=== PATIENT | male | born 1945 | race Caucasian/White ===

== ENCOUNTER 2017-09-16 18:48 | Emergency (ER) | payer OTHER, SELFPAY ==
[2017-09-16 19:04] VITALS: BP 158/98; PULSE 76; RESP 16; TEMP 36.8; O2SAT 98; BMI 27.2
--- NOTE | 2017-09-16 19:16 | DI.RAD.S_ITS ---
PROCEDURE: XR FINGER LT MIN 2V INDICATIONS: crushed finger TECHNIQUE: AP hand, 2 views of the third finger(s) acquired. COMPARISON: None. FINDINGS: Bones: Possible nondisplaced fracture in the tip of the third distal phalanx. No suspicious bony lesions. Soft tissues: No suspicious soft tissue calcifications. No tissue laceration and contusion. Tiny superficial soft tissue foreign bodies noted in the distal third finger. IMPRESSION: 1. Possible nondisplaced fracture in the tip of the third distal phalanx. 2. Tiny superficial soft tissue foreign bodies in the distal third finger. Dictated by: Jerzy Frank M.D. on 09/16/2017 at 19:49 Approved by: Jerzy Frank M.D. on 09/16/2017 at 19:52
[2017-09-16] MEDS: TET,DIPH,PERTUSS(ACELL),VAC/PF 0.5 ML SYRINGE IM (19:34)
[2017-09-16] MEDS: CLINDAMYCIN 150 MG CAPSULE 300 MG PO (20:20)
[2017-09-16] MEDS: HYDROCODONE/ACET 5/325 PREPACK 1 BOTTLE MISC (20:28)
[2017-09-16 20:32] VITALS: BP 183/100; PULSE 67; O2SAT 99
--- NOTE | 2017-09-16 20:32 | PC.NURSE ---
Dr Casas aware of pts bp and ok with him to d/c to home
--- NOTE | 2017-09-17 03:39 | ED.WOUNDLAC ---
HPI - Wound/Laceration General Chief Complaint: Wound/Laceration Stated Complaint: LACERATION TO MIDDLE FINGER LEFT HAND Time Seen by Provider: 09/16/17 19:00 Source: patient Mode of arrival: ambulatory Limitations: no limitations History of Present Illness HPI narrative: 71-year-old male presents at the request of a clinic on [facility] for evaluation of crush injury to the tip of the left index finger. Patient was working with some heavy rocks [place] when 1 of the rocks Leg[place] and crushed the tip of his finger. He has full range of motion and denies numbness or tingling. He was 1st seen and evaluated at the clinic on or [facility] and a digital block was performed and attempts at irrigation. Patient was transported here by private auto for completion of evaluation and treatment Onset (ago): hour(s) Extremity Location: Left: hand Place: outdoors Patient tetanus UTD: No Context: accidental Associated symptoms: pain Related Data Home Medications Medication Instructions Recorded Confirmed HYDROCODONE/ACET 5/500 - 1 tab PO Q4HPRN #0 03/30/07 (Hydrocodon-Acetaminophen 5-500) Previous Rx's Medication Instructions Recorded clindamycin HCl 300 mg PO QID 7 Days #28 cap 09/16/17 hydrocodone-acetaminophen 1 tab PO Q4-6H PRN #14 tab 09/16/17 Allergies Allergy/AdvReac Type Severity Reaction Status Date / Time cephalexin [From Keflex] Allergy Verified 09/16/17 19:04 Review of Systems Review of Systems All systems reviewed & are unremarkable except as noted in HPI and below Constitutional Denies chills, Denies fever(s), Denies lethargy and Denies weakness Eyes Denies change in vision, Denies eye discharge, Denies irritation and Denies loss of vision ENT Ears, Nose, Mouth, and Throat: Denies change in voice, Denies neck pain and Denies sore throat Cardiovascular Denies chest pain, Denies irregular heart rhythm, Denies lightheadedness, Denies palpitations, Denies dyspnea, Denies dyspnea on exertion and Denies orthopnea Respiratory Denies cough, Denies dyspnea, Denies dyspnea on exertion and Denies wheezing Gastrointestinal Gastrointestinal: Denies abdominal pain, Denies change in bowel habits, Denies diarrhea, Denies nausea and Denies vomiting Genitourinary Denies hematuria, Denies flank pain, Denies urinary incontinence and Denies urinary urgency Musculoskeletal Reports joint swelling, Reports limited range of motion and Denies neck pain Integumentary/Breasts Denies pruritus, Denies erythema, Denies rash and Reports wounds Neurologic Denies confusion, Denies loss of vision and Denies weakness Psychiatric Denies anxiety, Denies confusion, Denies depression, Denies homicidal ideation and Denies suicidal ideation Endocrine Denies palpitations Hematologic/Lymphatic Denies easy bruising Allergic/Immunologic Denies wheezing [facility] Social History Smoking Status: Never smoker Exam Initial Vital Signs Initial Vital Signs: Vital Signs Temperature 98.3 F 09/16/17 19:04 Pulse Rate 76 09/16/17 19:04 Respiratory Rate 16 09/16/17 19:04 Blood Pressure 158/98 H 09/16/17 19:04 Pulse Oximetry 98 09/16/17 19:04 Const General: cooperative and well developed Nutritional Appearance: well nourished Orientation: alert, awake, oriented x3 and not confused HENMT Head: normocephalic and atraumatic Ears: external ears normal and TM's normal bilaterally Nose: external nose normal and No nasal discharge Face and sinus: sinuses nontender, face symmetric, no sinus tenderness and No dry mucous membranes Mouth: oral mucosae normal and moist mucous membranes Teeth and gingiva: dentition normal Throat: tonsils normal and uvula midline Resp Effort & Inspection: normal respiratory effort, able to speak in complete sentences, no respiratory distress and no use of accessory muscles Auscultation: clear to auscultation bilaterally, no rales, no rhonchi and no wheezes GI Inspection: non-distended Palpation: soft, no hepatosplenomegaly, No guarding, No pulsatile mass and No tender Auscultation: normal bowel sounds Back/Spine/Pelvis Back: No CVA tenderness Cervical Spine: cervical ROM normal and No pain with cervical ROM Thoracic/Lumbar Spine: thoracic and lumbar spine normal to inspection Skin Trauma: laceration (Tip of left middle finger) Neuro General: alert, oriented x3, gait normal and no focal motor deficits Speech: speech normal Extrem Left upper extremity: hand (Significant damage to distal tip of left middle finger. Nail is intact but has been torn from nail fold. There is no active bleeding and no obvious blood from nail bed. There is no exposed bone. Laceration extends across entire tip of finger. There is no obvious tissue loss. No numbness or tin) Procedures Laceration Repair Laceration 1: Site: hand Side (If applicable): left Size (cm): 3 Description: irregular and contaminated Local Anesthetic: lidocaine 1%, bupivacaine 0.25% and other anesthetic (Digital block) Amount of anesthesia used (mL): 6 Pre-repair: wound explored, irrigated extensively, deep structures intact and extensive debridement Skin layer closed with: nylon Size (cm): 4-0 Number of sutures: 4 Technique: simple, interrupted Course Orders Ordered: ED Orders 09/16/17 19:16 XR finger LT min 2V Stat Discontinued Medications Hydrocodone Bitart/Acetaminophen (Vicodin Prepack) 1 bottle MISC SEEINSTR ONE Stop: 09/16/17 20:24 Last Admin: 09/16/17 20:28 Dose: 1 bottle Clindamycin HCl (Cleocin) 300 mg PO NOW ONE Stop: 09/16/17 20:09 Last Admin: 09/16/17 20:20 Dose: 300 mg Diphtheria/Tetanus/Acell Pertussis (Adacel) 0.5 ml IM .ONCE ONE Stop: 09/16/17 19:31 Last Admin: 09/16/17 19:34 Dose: 0.5 ml Consultations Consultation #1: Called to on-call orthopedics to discuss options for follow-up. In the end there happy with extensive cleaning, tetanus, antibiotics, splinting and close follow-up in the office early next week. Dr. Stringer as that the patient either show up 1st thing on Tuesday or call for an appointment afternoon Vital Signs - 8 hr 09/16/17 20:32 Pulse Rate 67 Blood Pressure [Left Arm] 183/100 H Pulse Oximetry 99 Discharge Plan Departure Patient Disposition: Home, Self-Care Clinical Impression: Open fracture of finger of left hand Discharge Date/Time: 09/16/17 20:46 Interventions: ED Discharge Assessment Last Done: 09/16/17 20:45 Instructions: DI for Laceration Repair, DI for Open Fracture Activity Restrictions/Additional Instructions: *You have been diagnosed with [ open tuft fracture of left middle finger ] *What to do: *Take medications as directed *Follow up with Dr. Lynn at [facility]. I (Dr. Casas) spoke with him while you were in the emergency department and he states he is in clinic on Tuesday and that you can just show up if it is early in the morning or call head if after lunch. *Return to ER if you should have any new, worsening or concerning symptoms, such as [increasing pain, drainage, fever over 101 F or other concerning symptoms ] Prescriptions: New clindamycin HCl 300 mg capsule 300 mg PO QID 7 Days Qty: 28 RF: 0 hydrocodone-acetaminophen 5-325 mg tablet 1 tab PO Q4-6H PRN (Reason: pain) Qty: 14 RF: 0 No Action HYDROCODONE/ACET 5/500 - (Hydrocodon-Acetaminophen 5-500) 1 tab PO Q4HPRN Qty: 0 RF: 0 Referrals: Enedina Lynn MD [Physician] - (I spoke with Dr. Lynn on Tuesday evening and he stated patient could just show up on Tuesday morning if early, or he could call ahead after his Stress test later in the day) Demario Renteria MD [Primary Care Provider] -
--- NOTE | 2017-09-17 03:44 | ED_ITS ---
HPI - Wound/Laceration General Chief Complaint: Wound/Laceration Stated Complaint: LACERATION TO MIDDLE FINGER LEFT HAND Time Seen by Provider: 09/16/17 19:00 Source: patient Mode of arrival: ambulatory Limitations: no limitations History of Present Illness HPI narrative: 71-year-old male presents at the request of a clinic on [facility] for evaluation of crush injury to the tip of the left index finger. Patient was working with some heavy rocks [place] when 1 of the rocks [place] and crushed the tip of his finger. He has full range of motion and denies numbness or tingling. He was 1st seen and evaluated at the clinic on or [facility] and a digital block was performed and attempts at irrigation. Patient was transported here by private auto for completion of evaluation and treatment Onset (ago): hour(s) Extremity Location: Left: hand Place: outdoors Patient tetanus UTD: No Context: accidental Associated symptoms: pain Related Data Home Medications Medication Instructions Recorded Confirmed HYDROCODONE/ACET 5/500 - 1 tab PO Q4HPRN #0 03/30/07 (Hydrocodon-Acetaminophen 5-500) Previous Rx's Medication Instructions Recorded clindamycin HCl 300 mg PO QID 7 Days #28 cap 09/16/17 hydrocodone-acetaminophen 1 tab PO Q4-6H PRN #14 tab 09/16/17 Allergies Allergy/AdvReac Type Severity Reaction Status Date / Time cephalexin [From Keflex] Allergy Verified 09/16/17 19:04 Review of Systems Review of Systems All systems reviewed & are unremarkable except as noted in HPI and below Constitutional Denies chills, Denies fever(s), Denies lethargy and Denies weakness Eyes Denies change in vision, Denies eye discharge, Denies irritation and Denies loss of vision ENT Ears, Nose, Mouth, and Throat: Denies change in voice, Denies neck pain and Denies sore throat Cardiovascular Denies chest pain, Denies irregular heart rhythm, Denies lightheadedness, Denies palpitations, Denies dyspnea, Denies dyspnea on exertion and Denies orthopnea Respiratory Denies cough, Denies dyspnea, Denies dyspnea on exertion and Denies wheezing Gastrointestinal Gastrointestinal: Denies abdominal pain, Denies change in bowel habits, Denies diarrhea, Denies nausea and Denies vomiting Genitourinary Denies hematuria, Denies flank pain, Denies urinary incontinence and Denies urinary urgency Musculoskeletal Reports joint swelling, Reports limited range of motion and Denies neck pain Integumentary/Breasts Denies pruritus, Denies erythema, Denies rash and Reports wounds Neurologic Denies confusion, Denies loss of vision and Denies weakness Psychiatric Denies anxiety, Denies confusion, Denies depression, Denies homicidal ideation and Denies suicidal ideation Endocrine Denies palpitations Hematologic/Lymphatic Denies easy bruising Allergic/Immunologic Denies wheezing [facility] Social History Smoking Status: Never smoker Exam Initial Vital Signs Initial Vital Signs: Vital Signs Temperature 98.3 F 09/16/17 19:04 Pulse Rate 76 09/16/17 19:04 Respiratory Rate 16 09/16/17 19:04 Blood Pressure 158/98 H 09/16/17 19:04 Pulse Oximetry 98 09/16/17 19:04 Const General: cooperative and well developed Nutritional Appearance: well nourished Orientation: alert, awake, oriented x3 and not confused HENMT Head: normocephalic and atraumatic Ears: external ears normal and TM's normal bilaterally Nose: external nose normal and No nasal discharge Face and sinus: sinuses nontender, face symmetric, no sinus tenderness and No dry mucous membranes Mouth: oral mucosae normal and moist mucous membranes Teeth and gingiva: dentition normal Throat: tonsils normal and uvula midline Resp Effort & Inspection: normal respiratory effort, able to speak in complete sentences, no respiratory distress and no use of accessory muscles Auscultation: clear to auscultation bilaterally, no rales, no rhonchi and no wheezes GI Inspection: non-distended Palpation: soft, no hepatosplenomegaly, No guarding, No pulsatile mass and No tender Auscultation: normal bowel sounds Back/Spine/Pelvis Back: No CVA tenderness Cervical Spine: cervical ROM normal and No pain with cervical ROM Thoracic/Lumbar Spine: thoracic and lumbar spine normal to inspection Skin Trauma: laceration (Tip of left middle finger) Neuro General: alert, oriented x3, gait normal and no focal motor deficits Speech: speech normal Extrem Left upper extremity: hand (Significant damage to distal tip of left middle finger. Nail is intact but has been torn from nail fold. There is no active bleeding and no obvious blood from nail bed. There is no exposed bone. Laceration extends across entire tip of finger. There is no obvious tissue loss. No numbness or tin) Procedures Laceration Repair Laceration 1: Site: hand Side (If applicable): left Size (cm): 3 Description: irregular and contaminated Local Anesthetic: lidocaine 1%, bupivacaine 0.25% and other anesthetic ( Digital block) Amount of anesthesia used (mL): 6 Pre-repair: wound explored, irrigated extensively, deep structures intact and extensive debridement Skin layer closed with: nylon Size (cm): 4-0 Number of sutures: 4 Technique: simple, interrupted Course Orders Ordered: ED Orders 09/16/17 19:16 XR finger LT min 2V Stat Discontinued Medications Hydrocodone Bitart/Acetaminophen (Vicodin Prepack) 1 bottle MISC SEEINSTR ONE Stop: 09/16/17 20:24 Last Admin: 09/16/17 20:28 Dose: 1 bottle Clindamycin HCl (Cleocin) 300 mg PO NOW ONE Stop: 09/16/17 20:09 Last Admin: 09/16/17 20:20 Dose: 300 mg Diphtheria/Tetanus/Acell Pertussis (Adacel) 0.5 ml IM .ONCE ONE Stop: 09/16/17 19:31 Last Admin: 09/16/17 19:34 Dose: 0.5 ml Consultations Consultation #1: Called to on-call orthopedics to discuss options for follow- up. In the end there happy with extensive cleaning, tetanus, antibiotics, splinting and close follow-up in the office early next week. Dr. Stringer as that the patient either show up 1st thing on Tuesday or call for an appointment afternoon Vital Signs - 8 hr 09/16/17 20:32 Pulse Rate 67 Blood Pressure [Left Arm] 183/100 H Pulse Oximetry 99 Discharge Plan Departure Patient Disposition: Home, Self-Care Clinical Impression: Open fracture of finger of left hand Discharge Date/Time: 09/16/17 20:46 Interventions: ED Discharge Assessment Last Done: 09/16/17 20:45 Instructions: DI for Laceration Repair, DI for Open Fracture Activity Restrictions/Additional Instructions: *You have been diagnosed with [ open tuft fracture of left middle finger ] *What to do: *Take medications as directed *Follow up with Dr. Lynn at [facility]. I (Dr. Casas) spoke with him while you were in the emergency department and he states he is in clinic on Tuesday and that you can just show up if it is early in the morning or call head if after lunch. *Return to ER if you should have any new, worsening or concerning symptoms , such as [increasing pain, drainage, fever over 101 F or other concerning symptoms ] Prescriptions: New clindamycin HCl 300 mg capsule 300 mg PO QID 7 Days Qty: 28 RF: 0 hydrocodone-acetaminophen 5-325 mg tablet 1 tab PO Q4-6H PRN (Reason: pain) Qty: 14 RF: 0 No Action HYDROCODONE/ACET 5/500 - (Hydrocodon-Acetaminophen 5-500) 1 tab PO Q4HPRN Qty: 0 RF: 0 Referrals: Enedina Lynn MD [Physician] - (I spoke with Dr. Lynn on Tuesday evening and he stated patient could just show up on Tuesday morning if early, or he could call ahead after his Stress test later in the day) Demario Renteria MD [Primary Care Provider] -
== END 2017-09-16 20:46 | disposition home or self-care (01) ==
PROVIDERS: Emergency Provider Emergency Medicine; Family Provider Family Medicine; PCP Family Medicine
DX: S62.609B Fracture of unspecified phalanx of unspecified finger, initial encounter for open fracture (principal); W23.0XXA Caught, crushed, jammed, or pinched between moving objects, initial encounter
CPT/HCPCS: 12031; 73140; 99283; 90715

== ENCOUNTER → 2017-12-07 14:16 | Outpatient (CLI) | payer OTHER, SELFPAY ==
--- NOTE | 2017-12-07 | DI.MRI.S_ITS ---
PROCEDURE: MR ANKLE LT WO CON INDICATIONS: PAIN OF LEFT HEEL TECHNIQUE: Noncontrast sagittal T1 spin echo and T2 fast spin echo with fat saturation, axial proton density fast spin echo and T2 fast spin echo with fat saturation, coronal T1 spin echo and T2 fast spin echo with fat saturation through the ankle/hindfoot. COMPARISON: [facility], CR, XR ANKLE 3 VIEWS WEIGHT BEARING LEFT, 11/23/2017, 14:00. FINDINGS: Image quality: Diagnostic. Bones and joints: There is no acute fracture, dislocation, suspicious osseous lesion, or evidence of avascular necrosis. Ankle mortise is well-maintained. There are no osteochondral defects identified involving the tibial plafond toward the talar dome. There is a small Achilles spur involving the calcaneus. There mild to moderate degenerative changes identified involving the midfoot joint, best appreciated involving the 2nd tarsometatarsal joint. No significant joint effusions are identified. Medial structures: The deltoid ligament and spring ligament appear to be intact. Increased signal involving the superomedial band of the spring ligament is present. The tibialis posterior, flexor digitorum longus, and flexor hallucis longus tendons are intact and otherwise unremarkable. Mild edema is noted within the distal flexor hallucis longus muscle near the myotendinous junction. The posterior tibial nerve through the region of the tarsal tunnel appears to be normal in size and signal that extrinsic mass effect appreciated. Lateral structures: The anterior and posterior distal tibiofibular ligaments are intact. Thickening of the anterior talofibular ligament is identified without a complete tear evident. The posterior talofibular ligament is intact. The calcaneofibular ligament also is intact. There is increased signal identified involving the peroneus brevis and peroneus longus tendons along the posterior margin of the lateral malleolus. There may be atrophy involving the corresponding muscles. No full-thickness tears are appreciated. Anterior structures: The tibialis anterior, extensor hallucis longus, and extensor digitorum longus tendons appear intact. The dorsal talonavicular ligament appears intact. Posterior and plantar structures: There is prominent thickening and mild increased signal identified involving the Achilles tendon with areas of low-grade partial-thickness tearing. No complete tear is identified. The medial and lateral bands of the plantar fascia are intact. IMPRESSION: 1. Low-grade partial-thickness tearing of moderate tendinopathy of the Achilles tendon. 2. Edema of the distal flexor hallucis longus muscle may be related to a muscle strain. Neurogenic process is difficult to exclude. 3. Low-grade sprain of the spring ligament. 4. Mild tendinopathy involving the peroneus brevis and peroneus longus tendons with thinning of these tendons this raises suspicion prever chronic partial thickness injury or atrophy involving the corresponding muscles. However, the muscles are not completely included on this exam. 5. Mild lateral ankle ligament scarring. 6. Moderate degenerative changes of the midfoot joints are most pronounced involving the 2nd tarsometatarsal joint. Dictated by: Desmond Dhillon M.D. on 12/07/2017 at 16:26 Approved by: Desmond Dhillon M.D. on 12/07/2017 at 16:32
== END ==
PROVIDERS: PCP Family Medicine; Visit Provider Orthopaedic Surgery Foot and Ankle Surgery
DX: M25.572 Pain in left ankle and joints of left foot (principal); S86.012A Strain of left Achilles tendon, initial encounter; S93.492A Sprain of other ligament of left ankle, initial encounter; M19.072 Primary osteoarthritis, left ankle and foot
CPT/HCPCS: 73721

== ENCOUNTER → 2019-01-17 13:15 | Outpatient (CLI) | payer OTHER, SELFPAY | PROVIDERS: PCP Family Medicine; Visit Provider Family Medicine | DX: S81.802A Unspecified open wound, left lower leg, initial encounter (principal); L03.116 Cellulitis of left lower limb | CPT/HCPCS: 11042; 87070; 87075; 87205; 99203 ==

== ENCOUNTER → 2019-01-24 09:34 | Outpatient (CLI) | payer OTHER, SELFPAY | PROVIDERS: PCP Family Medicine; Visit Provider Family Medicine | DX: S81.802A Unspecified open wound, left lower leg, initial encounter (principal); L03.116 Cellulitis of left lower limb | CPT/HCPCS: 11042 ==

== ENCOUNTER → 2019-02-06 10:35 | Outpatient (CLI) | payer OTHER, SELFPAY | PROVIDERS: PCP Family Medicine; Visit Provider Family Medicine | DX: S81.802A Unspecified open wound, left lower leg, initial encounter (principal) | CPT/HCPCS: 11042 ==

== ENCOUNTER → 2019-02-13 10:40 | Outpatient (CLI) | payer OTHER, SELFPAY | PROVIDERS: PCP Family Medicine; Visit Provider Family Medicine | DX: S81.802A Unspecified open wound, left lower leg, initial encounter (principal) | CPT/HCPCS: 11042 ==

== ENCOUNTER → 2019-03-02 10:38 | Outpatient (CLI) | payer OTHER, SELFPAY | PROVIDERS: PCP Family Medicine; Visit Provider Family Medicine | DX: S81.802A Unspecified open wound, left lower leg, initial encounter (principal); R60.0 Localized edema | CPT/HCPCS: 99213 ==

== ENCOUNTER → 2019-03-12 13:30 | Outpatient (CLI) | payer MEDICARE, OTHER, SELFPAY | PROVIDERS: PCP Family Medicine; Visit Provider Family Medicine | DX: S81.802D Unspecified open wound, left lower leg, subsequent encounter (principal); R60.0 Localized edema | CPT/HCPCS: 99212; 99213 ==

== ENCOUNTER → 2020-07-10 08:31 | Outpatient (CLI) | payer MEDICARE, OTHER, SELFPAY ==
[2020-07-10 18:56] LABS: Add Manual Diff / Slide Review NO; Basophils Absolute Auto 0 /uL (0-100); Basophils Percent Auto 0.9 % (0-2); Eosinophils Absolute Auto 100 /uL (0-450); Eosinophils Percent Auto 2.6 % (2-4); Hematocrit 43.1 % (41-53); Hemoglobin 14.6 g/dL (13.5-17.5); Lymphocytes Absolute Auto 1600 /uL (1100-4500); Lymphocytes Percent Auto 30.4 % (25-40); Mean Corpuscular HGB Conc 33.7 % (30-36); Mean Corpuscular Hemoglobin 33.3 PG (26-34); Mean Corpuscular Volume 98.5 fL (80-100); Monocytes Absolute Auto 500 /uL (0-900); Monocytes Percent Auto 8.9 % (3-14); Neutrophils Absolute Auto 2900 /uL (1500-7000); Neutrophils Percent Auto 57.2 % (50-75); Platelet Count 179 X10^3/uL (150-400); Red Blood Cell Count 4.38 X10^6/uL (4.5-5.9); Red Cell Distribution Width 13.9 % (11.6-14.8); White Blood Cell Count 5.1 X10^3/uL (4.5-11.0)
[2020-07-10 19:02] LABS: Alanine Aminotransferase 55 IU/L (<50); Albumin 4.2 g/dL (3.5-5.0); Albumin Globulin Ratio 1.5 (1.0-2.8); Alkaline Phosphatase 69 U/L (38-126); Aspartate Aminotransferase 49 IU/L (17-59); BUN Creatinine Ratio 22.1 (6-22); Bilirubin Total 0.7 mg/dL (0.2-1.3); Blood Urea Nitrogen 21 mg/dL (9-20); Calcium 9.6 mg/dL (8.4-10.2); Carbon Dioxide 27 mmol/L (22-32); Chloride 105 mmol/L (98-107); Cholesterol 243 mg/dL (140-199); Estimated Glomerular Filt Rate > 60.0 mL/min (>60); Globulin 2.8 g/dL (1.7-4.1); Glucose 101 mg/dL (80-110); HDL Cholesterol 36 mg/dL (40-60); HEMOLYSIS < 15 (0-50); LDL Cholesterol Calculated 185 mg/dL (<100); Sodium 139 mmol/L (137-145); Triglycerides 108 mg/dL (35-150)
== END ==
PROVIDERS: PCP Family Medicine; Visit Provider Family Medicine
DX: I25.10 Atherosclerotic heart disease of native coronary artery without angina pectoris (principal); R53.83 Other fatigue; R03.0 Elevated blood-pressure reading, without diagnosis of hypertension; R06.00 Dyspnea, unspecified; Z86.79 Personal history of other diseases of the circulatory system; Z95.1 Presence of aortocoronary bypass graft
CPT/HCPCS: 80053; 80061; 85025

== ENCOUNTER → 2022-07-06 10:31 | Outpatient (CLI) | payer MEDICARE, OTHER, SELFPAY ==
[2022-07-06 19:21] LABS: Add Manual Diff / Slide Review NO; Basophils Absolute Auto 0 /uL (0-100); Basophils Percent Auto 0.2 % (0-2); Eosinophils Absolute Auto 100 /uL (0-450); Eosinophils Percent Auto 1.9 % (2-4); Hematocrit 41.9 % (41-53); Hemoglobin 14.4 g/dL (13.5-17.5); Lymphocytes Absolute Auto 1800 /uL (1100-4500); Lymphocytes Percent Auto 27.7 % (25-40); Mean Corpuscular HGB Conc 34.5 % (30-36); Mean Corpuscular Hemoglobin 33.2 PG (26-34); Mean Corpuscular Volume 96.3 fL (80-100); Monocytes Absolute Auto 600 /uL (0-900); Monocytes Percent Auto 9.1 % (3-14); Neutrophils Absolute Auto 4100 /uL (1500-7000); Neutrophils Percent Auto 61.1 % (50-75); Platelet Count 174 X10^3/uL (150-400); Red Blood Cell Count 4.35 X10^6/uL (4.5-5.9); Red Cell Distribution Width 13.6 % (11.6-14.8); White Blood Cell Count 6.7 X10^3/uL (4.5-11.0)
[2022-07-06 19:28] LABS: Alanine Aminotransferase 36 IU/L (<50); Albumin 4.5 g/dL (3.5-5.0); Albumin Globulin Ratio 1.6 (1.0-2.8); Alkaline Phosphatase 68 U/L (38-126); Aspartate Aminotransferase 37 IU/L (17-59); BUN Creatinine Ratio 22.1 (6-22); Bilirubin Total 0.9 mg/dL (0.2-1.3); Blood Urea Nitrogen 21 mg/dL (9-20); Calcium 9.1 mg/dL (8.4-10.2); Carbon Dioxide 27 mmol/L (22-32); Chloride 102 mmol/L (98-107); Cholesterol 166 mg/dL (140-199); Estimated Glomerular Filt Rate > 60 mL/min (>60); Globulin 2.9 g/dL (1.7-4.1); Glucose 98 mg/dL (80-110); HDL Cholesterol 40 mg/dL (40-60); HEMOLYSIS < 15 (0-50); LDL Cholesterol Calculated 105 mg/dL (<100); Potassium 4.5 mmol/L (3.4-5.1); Sodium 138 mmol/L (137-145); Total Protein 7.4 g/dL (6.3-8.2); Triglycerides 105 mg/dL (35-150)
== END ==
PROVIDERS: PCP Family Medicine; Visit Provider Family Medicine
DX: R74.01 Elevation of levels of liver transaminase levels (principal); I10 Essential (primary) hypertension; I25.10 Atherosclerotic heart disease of native coronary artery without angina pectoris
CPT/HCPCS: 80053; 80061; 85025

== ENCOUNTER → 2022-10-14 15:15 | Outpatient (CLI) | payer MEDICARE, OTHER, SELFPAY | PROVIDERS: PCP Family Medicine; Visit Provider Physician Assistant Medical | DX: M54.89 Other dorsalgia (principal) | CPT/HCPCS: 87086 ==

== ENCOUNTER → 2022-10-25 | Outpatient (CLI) | payer MEDICARE, OTHER, SELFPAY ==
--- NOTE | 2022-10-25 09:30 | DI.NM.S_ITS ---
PROCEDURE: NM DEJUAN PERF SPECT R&S PHARM Rest and pharmacological stress myocardial perfusion SPECT with gated imaging and ejection fraction RADIOPHARMACEUTICAL: 11.8 mCi Tc-99m tetrafosmin IV at rest and 25 mCi Tc-99m tetrafosmin IV at peak effect of pharmacological stress. [id number] was performed. INDICATIONS: dyspnea w exertion, history of bypass 2017, fatigue TECHNIQUE: Radiopharmaceutical was injected at peak stress test, and also at rest. SPECT images were obtained. SPECT myocardial perfusion images were displayed in short axis, horizontal long axis, and vertical long axis views. Gated images were reviewed using Digital Signal software. COMPARISON: None. CARDIAC STRESS: A pharmacologic stress test was performed under the supervision of an attending staff, using an infusion of lexiscan 0.4mg IV X1. Hemodynamic data: There is normal blood pressure and heart rate response to pharmacologic stress. Symptoms: The patient denied anginal chest pain. Aminophylline: none EKG: No diagnostic changes of ischemia; no ectopy. FINDINGS: Raw data: There is good myocardial uptake of radiotracer. No significant motion artifacts. [id number] ratio is 0.30 (normal is less than 0.38 for tetrafosmin tracer). Left ventricle function: Gated images demonstrate normal left ventricular wall thickening. No segmental wall motion abnormalities. No transient ischemic dilation; TID is 0.69 (normal less than 1.3). Left ventricle resting end diastolic volume is 85 mL. Left ventricle stress ejection fraction is 70%; normal range is above 45%. Myocardial perfusion: There is normal distribution of activity in the right and left ventricular myocardium. No fixed or reversible perfusion defects. IMPRESSION: Low risk, normal pharmaceutical nuclear stress test 1) No perfusion evidence of ischemia or infarction. 2) Normal left ventricular size, wall motion, and systolic function (EF post stress 70%). 3) No angina with lexiscan. 4) No ST changes with lexiscan. 5) No prior nuclear stress test available for comparison. Dictated by: Anabel Manning MD on 10/26/2022 at 16:56 Approved by: Anabel Manning MD on 10/26/2022 at 16:57
--- NOTE | 2022-10-25 11:05 | DI.MRI.S_ITS ---
PROCEDURE: MR BRAIN (IAC) WWO CON INDICATIONS: rapid hearing loss right, right acoustic neuroma since 1989 TECHNIQUE: Noncontrast sagittal T1 spin echo, axial FLAIR, axial gradient echo, axial diffusion and ADC through the brain. Axial thin-slice 3D CISS, coronal TruFISP, axial T1 spin echo with fat saturation through the internal auditory canals. After the administration of contrast, thin slice axial and coronal T1 spin echo with fat saturation through the internal auditory canals, and axial and coronal and sagittal T1 spin echo with fat saturation through the brain. COMPARISON: None. FINDINGS: Image quality: Excellent. Cerebellopontine angles: Enhancing mass within the apex of the right internal auditory canal measuring 4 x 7 x 4 mm (AP by TV by cc). Inner ear structures appear normally formed. Otherwise, no suspicious enhancement in the internal auditory canal or along the course of the 7th cranial nerve. CSF spaces: Ventricles are normal in size and shape. No extra-axial fluid collections. Basal cisterns are patent. Brain: No intracranial bleeds or mass effects. Horta-white matter interface is intact. No abnormal intracranial enhancement. There are T2/FLAIR hyperintensities within the deep and periventricular white matter, nonspecific and likely representing chronic microvascular ischemic change. Age-related global volume loss. Diffusion weighted images demonstrate no acute ischemic insults. Brainstem appears normal. Normal intravascular flow voids are present. Skull and face: Calvarial marrow signal is normal. 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 Orbits appear normal. Sinuses: Paranasal sinus mucosal thickening. The mastoid air cells are clear. IMPRESSION: 1. Mass within the apex of the right IAC measuring 4 x 7 x 4 mm, consistent with history of acoustic neuroma. 2. Age-related volume loss and chronic microvascular ischemic change. 3. Severe left TMJ osteoarthritic changes. 4. Paranasal sinus mucosal disease. Dictated by: Slade Nieves M.D. on 10/25/2022 at 12:59 Approved by: Slade Nieves M.D. on 10/25/2022 at 13:05
== END ==
PROVIDERS: PCP Family Medicine; Referring Provider Family Medicine; Visit Provider Family Medicine
DX: D33.3 Benign neoplasm of cranial nerves (principal); H91.93 Unspecified hearing loss, bilateral; I25.10 Atherosclerotic heart disease of native coronary artery without angina pectoris; R53.83 Other fatigue; J32.9 Chronic sinusitis, unspecified; Z95.1 Presence of aortocoronary bypass graft
CPT/HCPCS: 70553; 78452; 93017; A9502; J2785

== ENCOUNTER → 2022-11-15 09:49 | Outpatient (CLI) | payer MEDICARE, OTHER, SELFPAY ==
[2022-11-15 20:10] LABS: Add Manual Diff / Slide Review NO; Basophils Absolute Auto 0 /uL (0-100); Basophils Percent Auto 0.5 % (0-2); Eosinophils Absolute Auto 100 /uL (0-450); Eosinophils Percent Auto 1.9 % (2-4); Hematocrit 41.2 % (41-53); Hemoglobin 14.3 g/dL (13.5-17.5); Lymphocytes Absolute Auto 1900 /uL (1100-4500); Lymphocytes Percent Auto 27.4 % (25-40); Mean Corpuscular HGB Conc 34.7 % (30-36); Mean Corpuscular Hemoglobin 33.1 PG (26-34); Mean Corpuscular Volume 95.4 fL (80-100); Monocytes Absolute Auto 500 /uL (0-900); Monocytes Percent Auto 7.6 % (3-14); Neutrophils Absolute Auto 4400 /uL (1500-7000); Neutrophils Percent Auto 62.6 % (50-75); Platelet Count 182 X10^3/uL (150-400); Red Blood Cell Count 4.32 X10^6/uL (4.5-5.9); Red Cell Distribution Width 13.8 % (11.6-14.8)
[2022-11-15 20:40] LABS: Erythrocyte Sedimentation Rate 15 MM/HR (0-15)
[2022-11-16 03:20] LABS: BUN Creatinine Ratio 18.2 (6-22); Blood Urea Nitrogen 16 mg/dL (9-20); C-Reactive Protein Quant < 0.5 mg/dL (<1.0); Calcium 9.5 mg/dL (8.4-10.2); Carbon Dioxide 21 mmol/L (22-32); Chloride 104 mmol/L (98-107); Estimated Glomerular Filt Rate > 60 mL/min (>60); Glucose 95 mg/dL (80-110); HEMOLYSIS < 15 (0-50); Potassium 4.6 mmol/L (3.4-5.1); Sodium 137 mmol/L (137-145)
[2022-11-16 03:47] LABS: Prostate Specific Antigen 4.09 ng/mL (0.10-4.00)
[2022-11-17 19:56] LABS: Free Kappa Lt Chains, Serum 18.3 mg/L (3.3-19.4); Free Lambda Lt Chains,Serum 12.3 mg/L (5.7-26.3)
[2022-11-18 17:30] LABS: Albumin 3.8 g/dL (2.9-4.4); Alpha-1-Globulin 0.2 g/dL (0.0-0.4); Alpha-2-Globulin 0.8 g/dL (0.4-1.0); Gamma Globulin 1.1 g/dL (0.4-1.8); Globulin Total 3.1 g/dL (2.2-3.9); Protein, Total 6.9 g/dL (6.0-8.5)
== END ==
PROVIDERS: PCP Family Medicine; Visit Provider Family Medicine
DX: Z12.5 Encounter for screening for malignant neoplasm of prostate (principal); M54.16 Radiculopathy, lumbar region; G62.9 Polyneuropathy, unspecified; M54.30 Sciatica, unspecified side; Z01.812 Encounter for preprocedural laboratory examination
CPT/HCPCS: 80048; 83883; 84153; 84155; 84165; 85025; 85651; 86140; G0103

== ENCOUNTER → 2022-12-02 13:02 | Outpatient (CLI) | payer MEDICARE, OTHER, SELFPAY ==
--- NOTE | 2022-12-02 | DI.ECHO.S_ITS ---
[facility]---------+ [facility] +---------+ : : [address] : : : : [id number] : : : : Phone: [phone]+ Echocardiogram Report + + :Name: CHI NATHAN JR Study Date: 12/02/2022 Height: 70 in : :[facility] ReadingLocation: Weight: 188 lb : : Gender: Male BSA: 2.0 m2 : :: 1945 Age: 76 yrs BP: 139/77 mmHg: :Reason For Study: Coronary Artery Disease : :Ordering Physician: BRET, : :KATHERIN Performed By: Lyric Pate : :Referring: KATHERIN QUEEN : + + Interpretation Summary The left ventricle is normal in size. Left ventricular systolic function is normal. The ejection fraction is estimated to be 55-60%. Diastolic parameters suggest a relaxation abnormality of the left ventricle, consistent with probable normal filling pressures. The right ventricle is mild to moderately dilated. The right ventricular systolic function is normal. The left atrial size is normal. There is no significant valvular heart disease. The aortic root is normal size. Procedure: A two-dimensional transthoracic echocardiogram with color flow and Doppler was performed. The study quality was technically difficult. There is no prior echocardiogram noted for this patient. Left Ventricle: The left ventricle is normal in size. Left ventricular systolic function is normal. The ejection fraction is estimated to be 55-60%. There are no obvious focal wall motion abnormalities noted but poor endocardial definition reduces the sensitivity for the detection of such. Diastolic parameters suggest a relaxation abnormality of the left ventricle, consistent with probable normal filling pressures. Right Ventricle: The right ventricle is mild to moderately dilated. The right ventricular systolic function is normal. Atria: The left atrial size is normal. Right atrial size is normal. There is no Doppler evidence for an interatrial shunt. Mitral Valve: The mitral valve is normal. There is mild mitral annular calcification. There is no mitral valve stenosis. There is no mitral regurgitation noted. Aortic Valve: The aortic valve is trileaflet. The aortic valve is mildly calcified. There is no aortic valve stenosis. There is trace aortic regurgitation. Tricuspid Valve: The tricuspid valve is normal. There is no tricuspid stenosis. There is trace tricuspid regurgitation. The right ventricular systolic pressure is estimated to be at least 19 mmHg based on an estimated right atrial pressure of 3 mm Hg. Pulmonic Valve: The pulmonic valve is not well visualized. There is no pulmonic valvular stenosis. There is trace pulmonic regurgitation. There is no significant valvular heart disease. Great Vessels: The aortic root is normal size. The ascending aorta is normal in size. The pulmonary artery is normal size. The IVC is of normal diameter and collapses greater than 50% with a sniff. This suggests a low right atrial pressure of 3 mm Hg. Pericardium/ Pleura There is no pericardial effusion. There is no pleural effusion. MMode/2D Measurements & Calculations LVIDd: 4.2 cm LVOT diam: 1.9 cm LVIDs: 2.7 cm Ao root diam: 3.5 cm FS: 35.7 % asc Aorta Diam: 3.3 cm EPSS: 0.30 cm IVSd: 1.1 cm LVPWd: 0.90 cm LV betancourt. diameter/BSA (cm/m^2): 2.1 LV sys. diameter/BSA (cm/m^2): 1.3 LA A2 area: 19.9 cm2 RA long axis: 5.2 cm LA A4 area: 13.6 cm2 RA area: 14.3 cm2 LA length (vol): 6.0 cm RA vol: 33.6 ml LA vol: 38.4 ml RA : 16.5 ml/m2 LA vol index: 18.9 ml/m2 RVD1 (basal): 4.4 cm TAPSE_phl: 1.4 cm Doppler Measurements & Calculations Ao V2 max: 124.0 cm/sec LVOT Max Erwin: 101.0 cm/sec Ao V2 mean: 86.9 cm/sec LV V1 max P.1 mmHg Ao max P.0 mmHg LV V1 VTI: 17.2 cm Ao mean P.0 mmHg AMBER(I,D): 1.9 cm2 Ao V2 VTI: 25.7 cm AMBER(V,D): 2.3 cm2 sev ratio: 0.67 AMBER indexed to BSA (cm^2/m^2): 0.93 MV E max erwin: 49.7 cm/sec TR max erwin: 199.0 cm/sec MV A max erwin: 78.2 cm/sec TR max P.9 mmHg MV E/A: 0.64 PA V2 max: 116.0 cm/sec Med Peak E' Erwin: 8.3 cm/sec PA V2 mean: 74.8 cm/sec E/E' med: 6.0 PA mean P.0 mmHg Lat Peak E' Erwin: 10.7 cm/sec PA pr(Accel): 50.6 mmHg E/E' lat: 4.6 E/e' average: 5.3 MV dec time: 0.25 sec SV(LVOT): 48.8 ml AV VR_phl: 0.81 AMBER(VTI)/BSA_phl: 0.94 Reading Physician:03:57 PM
== END ==
PROVIDERS: PCP Family Medicine; Referring Provider Internal Medicine Cardiovascular Disease; Visit Provider Internal Medicine Cardiovascular Disease
DX: I25.10 Atherosclerotic heart disease of native coronary artery without angina pectoris (principal); I34.81 Nonrheumatic mitral (valve) annulus calcification
CPT/HCPCS: 93306

== ENCOUNTER → 2023-05-09 11:24 | Outpatient (CLI) | payer MEDICARE, OTHER, SELFPAY ==
[2023-05-09 20:16] LABS: Prostate Specific Antigen Scrn 3.33 ng/mL (0.1-4.0)
== END ==
PROVIDERS: PCP Family Medicine; Visit Provider Family Medicine
DX: Z12.5 Encounter for screening for malignant neoplasm of prostate (principal); I10 Essential (primary) hypertension
CPT/HCPCS: 84443; G0103

== ENCOUNTER → 2023-06-07 10:40 | Outpatient (CLI) | payer MEDICARE, OTHER, SELFPAY ==
--- NOTE | 2023-06-07 10:42 | DI.CT.S_ITS ---
PROCEDURE: CT SINUS SCREEN WO CON INDICATIONS: Chronic pansinusitis TECHNIQUE: Noncontrast 3.0 mm axial images acquired from the frontal sinuses to the mid-sella, with coronal and sagittal reformats. For radiation dose reduction, the following was used: automated exposure control, adjustment of mA and/or kV according to patient size. COMPARISON: None. FINDINGS: Image quality: Excellent. Maxillary Sinuses: No bony remodeling or destruction. Moderate mucosal thickening of the bilateral maxillary sinuses. Small air-fluid level within left maxillary sinus with frothy secretions.. Ethmoid Air Cells: No bony remodeling or destruction. Mild mucosal thickening. Sphenoid Sinuses: No bony remodeling or destruction. Mild mucosal thickening of the left sphenoid sinus with frothy secretions. The right sphenoid sinus is clear.. Frontal Sinuses: No bony remodeling or destruction. Mild right and minimal left mucosal thickening.. Ostiomeatal Complexes: Ostiomeatal complexes are patent but narrowed by bilateral Jarrett cells. Miscellaneous: Visualized intra-orbital contents are normal. Bilateral lens replacements. No maren bullosa or paradoxical turbinate curvature. No th significant nasal septal deviation. 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 IMPRESSION: 1. Diffuse paranasal sinus disease as described above with frothy secretions suggesting acute sinusitis. 2. 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 Dictated by: Slade Nieves M.D. on 06/07/2023 at 11:52 Approved by: Slade Nieves M.D. on 06/07/2023 at 12:28
== END ==
PROVIDERS: PCP Family Medicine; Referring Provider Otolaryngology; Visit Provider Otolaryngology
DX: J32.4 Chronic pansinusitis (principal)
CPT/HCPCS: 70486

== ENCOUNTER → 2023-12-12 13:06 | Outpatient (CLI) | payer MEDICARE, OTHER, SELFPAY ==
[2023-12-12 20:42] LABS: Alanine Aminotransferase 21 IU/L (<50); Albumin 4.4 g/dL (3.5-5.0); Albumin Globulin Ratio 1.7 (1.0-2.8); Alkaline Phosphatase 67 U/L (38-126); Aspartate Aminotransferase 32 IU/L (17-59); BUN Creatinine Ratio 23.4 (6-22); Bilirubin Total 0.7 mg/dL (0.2-1.3); Blood Urea Nitrogen 22 mg/dL (9-20); Calcium 9.4 mg/dL (8.4-10.2); Carbon Dioxide 22 mmol/L (22-32); Chloride 103 mmol/L (98-107); Estimated Glomerular Filt Rate > 60 mL/min (>60); Globulin 2.6 g/dL (1.7-4.1); Glucose 91 mg/dL (80-110); HEMOLYSIS < 15 (0-50); Potassium 4.1 mmol/L (3.4-5.1); Sodium 136 mmol/L (137-145)
[2023-12-12 21:48] LABS: Folate > 20.0 ng/mL (2.76-20.0); Vitamin B12 280 pg/mL (239-931)
[2023-12-17 16:10] LABS: Vitamin B1 156.2 nmol/L (66.5-200.0)
== END ==
PROVIDERS: PCP Family Medicine; Visit Provider Family Medicine
DX: R26.89 Other abnormalities of gait and mobility (principal); R29.818 Other symptoms and signs involving the nervous system; R29.898 Other symptoms and signs involving the musculoskeletal system; R29.90 Unspecified symptoms and signs involving the nervous system
CPT/HCPCS: 80053; 82607; 82746; 84425

== ENCOUNTER → 2023-12-14 10:48 | Outpatient (CLI) | payer MEDICARE, OTHER, SELFPAY | PROVIDERS: PCP Family Medicine; Referring Provider Family Medicine; Visit Provider Family Medicine | DX: R06.02 Shortness of breath (principal); R06.00 Dyspnea, unspecified; R94.2 Abnormal results of pulmonary function studies | CPT/HCPCS: 94060; 94726; 94729 ==

== ENCOUNTER → 2024-03-13 12:09 | Outpatient (CLI) | payer MEDICARE, OTHER, SELFPAY ==
--- NOTE | 2024-03-13 12:10 | DI.CT.S_ITS ---
PROCEDURE: CT CHEST HIGH RESOLUTION INDICATIONS: Dyspnea on exertion TECHNIQUE: Noncontrast 1.0 and 5.0 mm thick contiguous axial sections from the pulmonary apex to the posterior costophrenic angles, with 7 mm thick coronal and sagittal MIP reformats. 1 mm thick dynamic expiratory images acquired through the upper, mid, and lower lungs. 1.0 mm thick axial sections acquired from the bandar to the posterior costophrenic angles in the prone end-inspiration position. For radiation dose reduction, the following was used: automated exposure control, adjustment of mA and/or kV according to patient size. COMPARISON: None. FINDINGS: Image quality: Diagnostic. Lower Neck: No enlarged lymph nodes. Thyroid: Normal CT appearance. Axillae: No enlarged lymph nodes. Chest Wall: Median sternotomy changes. Bones: Mild degenerative thoracic spine changes. Lungs and Pleura: Central and peripheral airways are normal without bronchial wall thickening or bronchiectasis. No significant air trapping on dynamic images. Scattered bilateral subpleural calcifications. No suspicious soft tissue nodule or mass. Calcified micro nodules in the right posterior costophrenic sulcus. No significant reticulation, interstitial thickening, honeycombing, ground-glass opacity, or consolidation. No pleural effusion, pleural plaquing, or pleural calcification. Heart: Mild cardiomegaly. Post CABG changes. Heavy navajo coronary artery calcification versus stenting. Thoracic Vessels: Small ascending aortic aneurysm at 4.3 cm. Normal pulmonary artery caliber. Mediastinum and Carla: No enlarged lymph nodes. Esophagus: No wall thickening. No hiatal hernia. Upper Abdomen: Hepatic cysts. Visible portions of upper abdominal organs are otherwise normal. IMPRESSION: No significant interstitial abnormalities. Predominantly scattered and calcified micro nodules in the lungs is likely sequelae remote, healed granulomatous disease exposure. Known coronary artery disease. Small ascending aortic aneurysm. Dictated by: Deann Choudhury M.D. on 03/13/2024 at 20:38 Approved by: Deann Choudhury M.D. on 03/13/2024 at 20:45
== END ==
PROVIDERS: PCP Family Medicine; Referring Provider Internal Medicine; Visit Provider Internal Medicine
DX: I71.21 Aneurysm of the ascending aorta, without rupture (principal); R06.00 Dyspnea, unspecified; M47.814 Spondylosis without myelopathy or radiculopathy, thoracic region; I51.7 Cardiomegaly; I25.10 Atherosclerotic heart disease of native coronary artery without angina pectoris; K76.89 Other specified diseases of liver; R91.8 Other nonspecific abnormal finding of lung field
CPT/HCPCS: 71250

== ENCOUNTER → 2024-03-13 12:20 | Outpatient (CLI) | payer MEDICARE, OTHER, SELFPAY ==
--- NOTE | 2024-03-13 | DI.MRI.S_ITS ---
PROCEDURE: MR HEAD/BRAIN WO/W CON INDICATIONS: ataxia, lack of coordination TECHNIQUE: Noncontrast axial T1 spin echo, axial T2 fast spin echo, sagittal and axial FLAIR, coronal T2 fast spin echo, axial gradient echo, axial diffusion and ADC through the brain. After the administration of contrast, axial and coronal and sagittal T1 spin echo with fat saturation through the brain. COMPARISON: [facility], CT, CT SINUS SCREEN WO CON, 06/07/2023, 11:06. [facility], MR, MR IAC (BRAIN) WWO CON, 10/25/2022, 10:49. FINDINGS: Image quality: Excellent. CSF spaces: Basal cisterns are patent. No extra-axial fluid collections. Ventricles are normal in size and shape. Brain: No midline shift. No intracranial bleeds or masses. No abnormal intracranial enhancement. There is cerebral volume loss for age. There is periventricular white matter chronic small vessel ischemic change. The brainstem appears normal. Diffusion-weighted images demonstrate no acute infarct. No chronic ischemic insults. Normal intravascular flow voids are present. In this patient with this given history, scrutiny is given to cerebellopontine angle cisterns and to the internal auditory canals. There is enhancing lesion seen within the right internal auditory canal, measuring up to 6 mm, as seen on series 13, image 37 and on series 15, image 94. Skull and face: Calvarial marrow is normal in signal. Orbits appear normal. Note is made of bilateral lens replacements. Significant irregularity is again seen involving the left mandibular condyle and the temporomandibular joint. Sinuses: There is moderate to severe mucosal thickening seen within the maxillary sinuses. Milder mucosal thickening can be seen elsewhere within the paranasal sinuses. No abnormal fluid is seen within the mastoid air cells. IMPRESSION: There is an enhancing nodule within the right internal auditory canal, which was previously seen in 2022 and demonstrates no definite change (to the limits of this standard protocol study). 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 Significant left temporomandibular joint degenerative change seen, which is better demonstrated by CT. Additional findings: Significant maxillary sinus disease. Dictated by: Jose Elias Bronson M.D. on 03/13/2024 at 15:43 Approved by: Jose Elias Bronson M.D. on 03/13/2024 at 15:47
== END ==
LOC: MRI 12:22
PROVIDERS: PCP Family Medicine; Referring Provider Psychiatry & Neurology Neurology; Visit Provider Psychiatry & Neurology Neurology
DX: R27.8 Other lack of coordination (principal); R27.0 Ataxia, unspecified; D33.3 Benign neoplasm of cranial nerves; G25.2 Other specified forms of tremor; J32.0 Chronic maxillary sinusitis; I71.21 Aneurysm of the ascending aorta, without rupture; R91.8 Other nonspecific abnormal finding of lung field; R06.00 Dyspnea, unspecified; M47.814 Spondylosis without myelopathy or radiculopathy, thoracic region; I51.7 Cardiomegaly; I25.10 Atherosclerotic heart disease of native coronary artery without angina pectoris; K76.89 Other specified diseases of liver
CPT/HCPCS: 70553; 71250; A9579

== ENCOUNTER → 2024-04-17 11:15 | Outpatient (CLI) | payer MEDICARE, OTHER, SELFPAY ==
[2024-04-17 19:26] LABS: Alanine Aminotransferase 24 IU/L (<50); Albumin 4.6 g/dL (3.5-5.0); Albumin Globulin Ratio 1.7 (1.0-2.8); Alkaline Phosphatase 66 U/L (38-126); Aspartate Aminotransferase 37 IU/L (17-59); BUN Creatinine Ratio 21.7 (6-22); Bilirubin Total 0.8 mg/dL (0.2-1.3); Blood Urea Nitrogen 23 mg/dL (9-20); Calcium 9.3 mg/dL (8.4-10.2); Carbon Dioxide 23 mmol/L (22-32); Chloride 105 mmol/L (98-107); Estimated Glomerular Filt Rate > 60 mL/min (>60); Globulin 2.7 g/dL (1.7-4.1); Glucose 86 mg/dL (80-110); HEMOLYSIS < 15 (0-50); Potassium 4.3 mmol/L (3.4-5.1); Sodium 138 mmol/L (137-145); Total Protein 7.3 g/dL (6.3-8.2)
[2024-04-17 19:27] LABS: Add Manual Diff / Slide Review NO; Basophils Absolute Auto 0 /uL (0-100); Basophils Percent Auto 0.4 % (0-2); Eosinophils Absolute Auto 100 /uL (0-450); Eosinophils Percent Auto 0.9 % (2-4); Hematocrit 41.8 % (41-53); Hemoglobin 14.2 g/dL (13.5-17.5); Lymphocytes Absolute Auto 1800 /uL (1100-4500); Lymphocytes Percent Auto 30.4 % (25-40); Mean Corpuscular Hemoglobin 33.5 PG (26-34); Mean Corpuscular Volume 98.6 fL (80-100); Monocytes Absolute Auto 500 /uL (0-900); Monocytes Percent Auto 8.5 % (3-14); Neutrophils Absolute Auto 3600 /uL (1500-7000); Neutrophils Percent Auto 59.8 % (50-75); Platelet Count 199 X10^3/uL (150-400); Red Blood Cell Count 4.24 X10^6/uL (4.5-5.9); Red Cell Distribution Width 13.2 % (11.6-14.8); White Blood Cell Count 6.1 X10^3/uL (4.5-11.0)
[2024-04-17 19:33] LABS: INR 1.1 (0.9-1.3); Prothrombin Time 11.9 SECONDS (9.4-12.5)
[2024-04-17 19:36] LABS: PTT Partial Thromboplastin Tim 36 SECONDS (25.1-36.5)
== END ==
PROVIDERS: PCP Family Medicine; Visit Provider Family Medicine
DX: Z78.9 Other specified health status (principal); Z86.79 Personal history of other diseases of the circulatory system; I11.0 Hypertensive heart disease with heart failure; I50.9 Heart failure, unspecified; I25.10 Atherosclerotic heart disease of native coronary artery without angina pectoris; R74.01 Elevation of levels of liver transaminase levels; R06.00 Dyspnea, unspecified
CPT/HCPCS: 80053; 85025; 85610; 85730

== ENCOUNTER → 2024-07-12 08:59 | Outpatient (CLI) | payer MEDICARE, OTHER, SELFPAY ==
[2024-07-12 19:43] LABS: BUN Creatinine Ratio 20.6 (6-22); Blood Urea Nitrogen 20 mg/dL (9-20); Calcium 9.6 mg/dL (8.4-10.2); Carbon Dioxide 25 mmol/L (22-32); Chloride 102 mmol/L (98-107); Cholesterol 209 mg/dL (140-199); Estimated Glomerular Filt Rate > 60 mL/min (>60); Glucose 91 mg/dL (70-99); HDL Cholesterol 34 mg/dL (40-60); HEMOLYSIS < 15 (0-50); LDL Cholesterol Calculated 147 mg/dL (<100); Potassium 4.6 mmol/L (3.4-5.1); Sodium 136 mmol/L (137-145); Triglycerides 142 mg/dL (35-150)
[2024-07-12 20:15] LABS: Prostate Specific Antigen Scrn 3.73 ng/mL (0.1-4.0)
[2024-07-12 20:18] LABS: Ferritin 179 ng/mL (18-464)
[2024-07-12 20:35] LABS: Vitamin B12 866 pg/mL (239-931)
== END ==
PROVIDERS: PCP Family Medicine; Visit Provider Family Medicine
DX: Z12.5 Encounter for screening for malignant neoplasm of prostate (principal); I11.0 Hypertensive heart disease with heart failure; I50.9 Heart failure, unspecified; I25.10 Atherosclerotic heart disease of native coronary artery without angina pectoris; E53.8 Deficiency of other specified B group vitamins; E78.2 Mixed hyperlipidemia
CPT/HCPCS: 80048; 80061; 82607; 82728; G0103

== ENCOUNTER → 2025-01-24 11:21 | Outpatient (CLI) | payer MEDICARE, OTHER, SELFPAY ==
[2025-01-24 19:12] LABS: Hematocrit 41.0 % (41-53); Hemoglobin 14.2 g/dL (13.5-17.5); Mean Corpuscular HGB Conc 34.7 % (30-36); Mean Corpuscular Hemoglobin 33.9 PG (26-34); Mean Corpuscular Volume 97.8 fL (80-100); Platelet Count 188 X10^3/uL (150-400)
[2025-01-24 19:40] LABS: Alanine Aminotransferase 38 IU/L (<50); Albumin 4.7 g/dL (3.5-5.0); Albumin Globulin Ratio 1.7 (1.0-2.8); Alkaline Phosphatase 72 U/L (38-126); Blood Urea Nitrogen 22 mg/dL (9-20); Calcium 9.5 mg/dL (8.4-10.2); Carbon Dioxide 28 mmol/L (22-32); Chloride 101 mmol/L (98-107); Cholesterol 131 mg/dL (140-199); Estimated Glomerular Filt Rate > 60 mL/min (>60); Globulin 2.8 g/dL (1.7-4.1); Glucose 85 mg/dL (70-99); HDL Cholesterol 36 mg/dL (40-60); HEMOLYSIS 19 (0-50); Potassium 4.7 mmol/L (3.4-5.1); Sodium 140 mmol/L (137-145); Total Protein 7.5 g/dL (6.3-8.2); Triglycerides 154 mg/dL (35-150)
== END ==
PROVIDERS: PCP Family Medicine; Visit Provider Family Medicine
DX: I25.810 Atherosclerosis of coronary artery bypass graft(s) without angina pectoris (principal); I11.0 Hypertensive heart disease with heart failure; I50.9 Heart failure, unspecified; E78.2 Mixed hyperlipidemia; Z95.1 Presence of aortocoronary bypass graft
CPT/HCPCS: 80053; 80061; 85027